=== PATIENT | male | born 1990 | race Caucasian/White ===

== ENCOUNTER 2021-10-25 07:02 | Day surgery (SDC) | payer OTHER ==
[2021-10-24 15:35] LABS: Absolute Lymphocytes (CBC) 2.1 K/uL (0.7-4.9); Hematocrit 45.9 % (39.6-49.0); Lymphocytes % 28.5 % (15.3-44.8); MPV 7.9 fL (7.6-11.3); RBC Red Blood Cell Count 5.03 M/uL (4.33-5.43)
[2021-10-25] MEDS ORDERED: Ringers Lactate 1,000 ML IV ONE (07:19)
[2021-10-25] MEDS ORDERED: CEFOXITIN SODIUM 1 GM/VIAL ONE (07:19)
[2021-10-25] MEDS ORDERED: CEFOXITIN 1 GM in NA CHLORIDE 0.9% 50 ML IVPB SCH (07:30)
[2021-10-25] MEDS ORDERED: FENTANYL CITR 100 MCG/2 ML ONE (07:34)
[2021-10-25] MEDS ORDERED: LIDOCAINE 1% MPF 5 ML VIAL ONE (07:34)
[2021-10-25] MEDS ORDERED: propofoL 200 MG/20 ML VIAL IV ONE (07:34)
[2021-10-25] MEDS ORDERED: MIDAZOLAM HCL 2 MG/2 ML INJ ONE (07:35)
[2021-10-25] MEDS ORDERED: ONDANSETRON 4 MG/2 ML VIAL ONE (07:35)
[2021-10-25] MEDS ORDERED: dexAMETHasone 4 MG/ML VIAL ONE (07:35)
[2021-10-25] MEDS ORDERED: ACETAMINOPHEN 500 MG TAB ONE (07:39)
[2021-10-25] MEDS ORDERED: CELECOXIB 100 MG CAPSULE ONE (07:39)
--- NOTE | 2021-10-25 09:13 | P.OP ---
Nursing Assoc: NONE,NONE Preoperative diagnosis: Thrombosed hemorrhoid Postoperative diagnosis: Same Primary procedure: Exam under anesthesia, rigid proctoscopy and hemorrhoidectomy Anesthesia: General Estimated blood loss: Minimal Specimen: Thrombosed hemorrhoid right lateral Findings: As above Operative Technique: Patient brought to the OR placed supine position general anesthesia began. Patient placed in the lithotomy position prepped draped in usual sterile fashion. Exam under anesthesia and rigid proctoscopy performed. Only significant finding was a thrombosed hemorrhoid in the right side of the anal canal external in nature. Marcaine 0.5% infiltrated local. Then harmonic scalpel used to excise the thrombosed hemorrhoid. Specimen was labeled a ppropriately and sent to pathology. Sterile dressing applied. Patient tolerated the procedure in stable condition taken to recovery in good general condition. Transferred to: Recovery Room Condition: Good
[2021-10-25] MEDS ORDERED: KETOROLAC 30 MG/ML INJ ONE (09:16)
[2021-10-25 09:58] VITALS: O2SAT 97
[2021-10-25 10:26] VITALS: BP 132/87; TEMP 97.3
== END 2021-10-25 10:50 | disposition home or self-care (01) ==
LOC: OR 07:02
PROVIDERS: ATTEND Surgery
PROC: 06BY0ZC Excision of Hemorrhoidal Plexus, Open Approach (ICD-10-PCS; 2021-10-25)
PROC: 0DJD8ZZ Inspection of Lower Intestinal Tract, Via Natural or Artificial Opening Endoscopic (ICD-10-PCS; principal; 2021-10-25 08:30)
DX: K64.5 Perianal venous thrombosis (principal)
CPT/HCPCS: 85025; 36415; 88304; 45300; 46083; U0003; J2704; J1100; J2250; J3010; J7120; J0694; J2405